=== PATIENT | male | born 1990 | race Caucasian/White ===

== ENCOUNTER 2021-11-30 07:59 | Emergency (ER) | payer OTHER ==
[~2021-11-30] VITALS: Ht 190.5 cm; Wt 95.3 kg
--- NOTE | 2021-11-30 07:59 | NUR ---
Placed in room H1 . Placed on sprinkling system irrigator, blood pressure machine and pulse oximeter. To gown for exam. Side rails up.
[2021-11-30 08:00] VITALS: BP_SYST 137
--- NOTE | 2021-11-30 08:05 | NUR ---
PT CAME IN FROM HOME FOR ANXIETY, CHEST TIGHTNESS, TINGLING IN FINGER TIPS STARTING THIS AM. STATES HE HAS A HX OF PANIC ATTACKS AND TAKES MEDICATION AT HOME FOR ANXIETY BUT DID NOT TAKE ANY THIS MORNING. PT IS AMBULATORY, [id number], VSS
--- NOTE | 2021-11-30 08:08 | NUR ---
ER DR. EDUARDO AT THE BEDSIDE EXAMINING PT
[2021-11-30] MEDS ORDERED: LORazepam 1 MG TABLET PO ONE (08:15)
--- NOTE | 2021-11-30 08:45 | NUR ---
[place]RESS NOTED
[2021-11-30 09:08] VITALS: BP_SYST 129
--- NOTE | 2021-11-30 09:09 | NUR ---
Patient given written and verbal discharge instructions and verbalizes understanding. ER MD discussed with patient the results and treatment provided. Patient in stable condition. ID arm band removed. NO Rx given. Patient educated on pain management and to follow up with PMD. Pain Scale 0/10. Opportunity for questions provided and answered. Medication side effect fact sheet provided.
== END 2021-11-30 09:09 | disposition home or self-care (01) ==
LOC: SED 07:59
DX: F43.0 Acute stress reaction (principal); R07.89 Other chest pain; F41.9 Anxiety disorder, unspecified
CPT/HCPCS: 93005; 99283